=== PATIENT | male | born 1995 ===

== ENCOUNTER 2017-12-17 01:39 | Emergency (ER) | payer SELFPAY ==
[2017-12-17] MEDS ORDERED: PROPARACAINE/FLUORESCEIN SOD 100 DROP/5 ML BOTTLE OU STA (03:20)
--- NOTE | 2017-12-17 03:23 | ED PDOC ---
HPI: Eye Injury/Pain Time Seen by Provider: 12/17/17 02:10 Chief Complaint (Nursing): Eye Problem Chief Complaint (Provider): eye irritation History Per: Patient, Other (significant other) History/Exam Limitations: no limitations Onset/Duration Of Symptoms: Hrs (5) Current Symptoms Are (Timing): Better Associated Symptoms: FB Sensation, Itching Additional Complaint(s): 22 y/o male presents for evaluation of bilateral eye irritation x 5 hours. States he had just showered when symptoms started, described as "itching" but states he does note pain when he opens his eyes. Denies fever, headache, drainage from eyes, vision changes. Applied anti-itch drops with some improvement Past Medical History Reviewed: Historical Data, Nursing Documentation, Vital Signs Vital Signs: Last Vital Signs Temp 97.9 F 12/17/17 02:06 Pulse 68 12/17/17 02:06 Resp 17 12/17/17 02:06 BP 106/67 12/17/17 02:06 Pulse Ox 98 12/17/17 02:06 - Medical History PMH: Kidney Stones Denies: Chronic Kidney Disease - Surgical History Surgical History: Appendectomy - Family History Family History: States: Unknown Family Hx - Home Medications Home Medications: Ambulatory Orders Medication Instructions Recorded Ciprofloxacin/Ciprofloxa HCl 500 mg PO Q12 #14 tab 01/05/16 [Ciprofloxacin] traMADol [Ultram] 50 mg PO Q6 #16 tab 01/05/16 Cyclobenzaprine [Cyclobenzaprine 10 mg PO BID #15 tab 04/01/16 HCl] Ibuprofen [Motrin Tab] 600 mg PO Q6 #30 tab 04/01/16 - Allergies Allergies/Adverse Reactions: Allergies Allergy/AdvReac Type Severity Reaction Status Date / Time No Known Allergies Allergy Verified 12/06/14 07:29 Review of Systems ROS Statement: Except As Marked, All Systems Reviewed And Found Negative Eyes: Positive for: Redness Physical Exam - Reviewed Nursing Documentation Reviewed: Yes Vital Signs Reviewed: Yes - Physical Exam Appears: Positive for: Well, Non-toxic, No Acute Distress Head Exam: Positive for: ATRAUMATIC, NORMAL INSPECTION, NORMOCEPHALIC Skin: Positive for: Normal Color Eye Exam: Positive for: Normal appearance, EOMI, PERRL, Conjunctival injection (b/l;). Negative for: Periorbital swelling, Periorbital tenderness Neurologic/Psych: Positive for: Alert, Oriented (x3) - ECG O2 Sat by Pulse Oximetry: 98 - Progress ED Course And Treament: Flucaine drops applied to both eyes; no uptake noted with black light bilaterally Eyes flushes with NS Patient states he feels better Patient educated on findings, discharged with instructions to follow up Optho within 2 days Advised to continue anti-itch drops PRN Return precautions given Patient demonstrates full understanding of discharge instructions Patient requires no further intervention in the ED and is stable for discharge at this time Disposition - Clinical Impression Clinical Impression: Irritation of both eyes - Patient ED Disposition Is Patient to be Admitted: No Counseled Patient/Family Regarding: Diagnosis, Need For Followup - Disposition Referrals: [facility] [Outside] Teo Garcia MD [Staff Provider] - Disposition: Routine/Home Disposition Time: 04:01 Condition: IMPROVED Instructions: Conjunctivitis (Noninfectious Pinkeye)
[2017-12-17 05:20] VITALS: BP 114/72; PULSE 74; RESP 18; TEMP 98.4; O2SAT 99
== END 2017-12-17 04:10 | disposition home or self-care (01) ==
LOC: H.ER 01:39
DX: H57.8 Other specified disorders of eye and adnexa (principal)

== ENCOUNTER 2018-04-07 00:03 | Emergency (ER) | payer SELFPAY ==
[2018-04-07] MEDS ORDERED: PROPARACAINE/FLUORESCEIN SOD 100 DROP/5 ML BOTTLE OU STA (01:01)
[2018-04-07] MEDS ORDERED: Polymyxin/Trimethoprim Ophth Soln OU STA (01:35)
[2018-04-07 02:00] VITALS: BP 115/71; PULSE 81; RESP 16; TEMP 98; O2SAT 100
--- NOTE | 2018-04-07 02:44 | ED PDOC ---
HPI: Eye Injury/Pain Time Seen by Provider: 04/07/18 00:59 Chief Complaint (Nursing): Eye Problem Chief Complaint (Provider): Eye Problem History Per: Patient History/Exam Limitations: no limitations Onset/Duration Of Symptoms: Hrs (x2) Additional Complaint(s): 22 y/o male presents to the ED complaining of bilateral eye pain, onset around x2 hours prior to arrival. 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 Patient states it feels as thought he got some dirt in his eyes. Patient is having difficulty opening his left eye. He otherwise denies vision change. Past Medical History Reviewed: Historical Data, Nursing Documentation, Vital Signs Vital Signs: Last Vital Signs Temp 98.0 F 04/07/18 01:53 Pulse 81 04/07/18 01:53 Resp 16 04/07/18 01:53 BP 115/71 04/07/18 01:53 Pulse Ox 100 04/07/18 01:53 - Medical History PMH: Kidney Stones Denies: Chronic Kidney Disease - Surgical History Surgical History: Appendectomy - Family History Family History: States: Unknown Family Hx - Home Medications Home Medications: Ambulatory Orders Medication Instructions Recorded Ciprofloxacin/Ciprofloxa HCl 500 mg PO Q12 #14 tab 01/05/16 [Ciprofloxacin] traMADol [Ultram] 50 mg PO Q6 #16 tab 01/05/16 Cyclobenzaprine [Cyclobenzaprine 10 mg PO BID #15 tab 04/01/16 HCl] Ibuprofen [Motrin Tab] 600 mg PO Q6 #30 tab 04/01/16 - Allergies Allergies/Adverse Reactions: Allergies Allergy/AdvReac Type Severity Reaction Status Date / Time No Known Allergies Allergy Verified 12/06/14 07:29 Review of Systems ROS Statement: Except As Marked, All Systems Reviewed And Found Negative Eyes: Positive for: Pain. Negative for: Vision Change Physical Exam - Reviewed Nursing Documentation Reviewed: Yes Vital Signs Reviewed: Yes - Physical Exam Appears: Positive for: Well, Non-toxic, No Acute Distress Head Exam: Positive for: ATRAUMATIC, NORMOCEPHALIC Skin: Positive for: Normal Color, Warm, DRY Eye Exam: Positive for: EOMI, PERRL, Conjunctival injection (mild conjunctival erythema bilaterally), Other (Fluorosceine uptake < 0.5 cm) Extremity: Positive for: Normal ROM. Negative for: Pedal Edema, Deformity Neurologic/Psych: Positive for: Alert, Oriented. Negative for: Motor/Sensory Deficits - ECG O2 Sat by Pulse Oximetry: 100 (RA) Pulse Ox Interpretation: Normal Medical Decision Making Medical Decision Making: Time: 01:01 Initial Impression: 22 y/o male with small corneal abrasion. Eyes were flushed with saline after fluoracaine was placed. Patient report feeling much better after. Gave patient bottle of Polytrim and advised to follow up with Dr. Garcia, ophtamologist tomorrow. Initial Plan: * Flucaine -- Scribe Attestation: Documented by Otf Rivas acting as a scribe for Lucien Tobin MD. Provider Scribe Attestation: All medical record entries made by the Scribe were at my direction and personally dictated by me. I have reviewed the chart and agree that the record accurately reflects my personal performance of the history, physical exam, medical decision making, and the department course for this patient. I have also personally directed, reviewed, and agree with the discharge instructions and disposition. Disposition - Clinical Impression Clinical Impression: Corneal abrasion - Disposition Referrals: Teo Garcia MD [Staff Provider] - Disposition Time: 01:00 Condition: STABLE Additional Instructions: Please followup with Dr. Garcia tomorrow. Instructions: Corneal Abrasion Forms: Drive (Latvian)
== END 2018-04-07 01:55 | disposition home or self-care (01) ==
LOC: H.ER 00:03
DX: S05.00XA Injury of conjunctiva and corneal abrasion without foreign body, unspecified eye, initial encounter (principal); Y92.89 Other specified places as the place of occurrence of the external cause